=== PATIENT | female | born 1995 | race Caucasian/White ===

== ENCOUNTER 2018-09-09 10:34 | Emergency (ER) | payer SELFPAY ==
[~2018-09-09] VITALS: Wt 112.9 kg
[2018-09-09] MEDS ORDERED: SOD CHLORIDE 0.9% 1,000 ML IV STA ×2 (10:52→13:56)
[2018-09-09] MEDS ORDERED: LORAZEPAM 2 MG INJ IV ONE (11:00)
[2018-09-09] MEDS ORDERED: METO-407 PO (11:50)
[2018-09-09] MEDS ORDERED: MIRT7.5T8 PO (11:51)
[2018-09-09] MEDS ORDERED: CITA20TA11 PO (11:52)
[2018-09-09] MEDS ORDERED: LURA80TA PO (11:52)
[2018-09-09] MEDS ORDERED: ONDA4TAB13 PO (11:53)
[2018-09-09] MEDS ORDERED: LINA145C PO (11:54)
[2018-09-09] MEDS ORDERED: LEVA0.634 INHALATION (11:56)
[2018-09-09] MEDS ORDERED: FLUD0.1T10 PO ×2 (12:51)
[2018-09-09] MEDS ORDERED: ZIPRASIDONE 20 MG CAP PO ONE (13:00)
[2018-09-09] MEDS ORDERED: DILTIAZEM 25 MG INJ IV ONE (13:00)
[2018-09-09] MEDS ORDERED: LORAZEPAM 2 MG INJ IV STA (13:56)
[2018-09-09] MEDS ORDERED: METOPROLOL 5 MG INJ IV ONE (14:00)
--- NOTE | 2018-09-09 14:09 | ERD ---
ER Documentation Chief Complaint Chief Complaint palpitaTIONS HX OF SVT [id number] IN TRIAGE HPI This is a 23-year-old female visiting from [place] with a history of severe PTSD on multiple benzodiazepines. The patient indicates that she was seen just prior at [facility] for tachycardia. The patient states she was subsequently released after she was told that she had anxiety. They administered Ativan I did a chest radiograph which she stated was normal. The patient however indicates that she still feeling very warm and experiencing palpitations. She has no chest pain or pressure. She has no shortness of breath. She has no suicidal homicidal thoughts or ideations. ROS All systems reviewed and are negative except as per history of present illness. Medications Home Meds Reported Medications Fludrocortisone* (Fludrocortisone*) 0.1 Mg Tablet, 0.2 MG PO QAM, TAB 09/09/18 Fludrocortisone* (Fludrocortisone*) 0.1 Mg Tablet, 0.1 MG PO QHS, TAB 09/09/18 Levalbuterol Hcl* (Levalbuterol Hcl*) 0.63 Mg/3 Ml Vial.neb, 0.63 MG INHALATION Q6H PRN for WHEEZING AND SOB, VIAL 09/09/18 Linaclotide (LINZESS) 145 Mcg Capsule, 145 MCG PO DAILY, #30 CAP 09/09/18 Ondansetron Hcl* (Zofran*) 4 Mg Tab, 4 MG PO NEEDED PRN for NAUSEA AND OR VOMITING, TAB 09/09/18 Citalopram Hydrobromide* (Celexa*) 20 Mg Tablet, 20 MG PO DAILY, #30 TAB 09/09/18 Lurasidone Hcl (LATUDA) 80 Mg Tablet, 80 MG PO DAILY, #30 TAB 09/09/18 Mirtazapine* (Mirtazapine*) 7.5 Mg Tablet, 7.5 MG PO HS PRN for NEEDED, TAB 09/09/18 Metoprolol Tartrate* (Lopressor*) 100 Mg Tablet, 100 MG PO BID, #60 TAB 09/09/18 Allergies Allergies: Coded Allergies: chlorpromazine (Verified Allergy, Mild, unk, 09/09/18) haloperidol (Verified Allergy, Mild, unk, 09/09/18) latex (Verified Allergy, Mild, sensitivity, 09/09/18) olanzapine (Verified Allergy, Mild, hives/sob, 09/09/18) Uncoded Allergies: SEAFOOD (Allergy, Mild, unk, 09/09/18) PMhx/Soc Hx Respiratory Disorders: Yes (ASTHMA) Hx Cardiac Disorders: Yes (SVT, LOW JADYN=P) Hx Psychiatric Problems: Yes (DEPRESSION, PTSD, BULIMIA) Hx Miscellaneous Medical Probl: Yes (RHABDO) Hx Alcohol Use: No Hx Substance Use: No Hx Tobacco Use: No Smoking Status: Never smoker Physical Exam Vitals Vital Signs Date Temp Pulse Resp B/P (MAP) Pulse Ox O2 O2 Flow FiO2 Time Delivery Rate 09/09/18 98.7 99 13 120/82 100 Room Air 18:08 (95) 09/09/18 98.7 95 21 126/100 97 Room Air 17:00 (109) 09/09/18 99.2 110 20 139/104 100 Room Air 15:00 (116) 09/09/18 99.2 107 24 139/89 100 Room Air 14:30 (106) 09/09/18 99.2 101 28 142/106 100 Room Air 13:30 (118) 09/09/18 99.2 83 31 148/100 99 Room Air 11:38 (116) 09/09/18 99.2 130 20 193/141 99 10:35 (158) Physical Exam Constitutional:Well-developed. Well-nourished. HEENT:Normocephalic. Atraumatic.Pupils were equal round reactive to light. Moist mucous membranes.No tonsillar exudates. Neck: No nuchal rigidity. No lymphadenopathy. No posterior cervical spine tenderness or step-offs. Respiratory: Not using accessory muscles of respiration.Lungs were clear to auscultation bilaterally. No rhonchi. No rales. No wheezing. Cardiovascular: Tachycardic with regular rhythm.No murmurs. No rubs were appreciated.S1, S2 normal. Distal pulses are palpable 2+ bilaterally. GI: Abdomen was soft. Nontender. Non Distended. No pulsatile abdominal masses or bruits. No rebound. No guarding. Bowel sounds were present and normal. Muscle skeletal: Full range of motion of both the upper and lower extremities bilaterally.Normal muscle tone.No assymetrical calf tenderness or swelling. Skin: No petechia, no purpura. No lesions on the palms or the soles of the feet. No maculopapular rash. NEURO: Patient was alert, awake, orientated x3.No facial droop. Gait observed and normal with no ataxia.Speech had regular rate and rhythm. No focal neurological deficits. PSYCH: Patient appears very anxious. Patient very rapidly. Denied any suicidal homicidal thoughts or ideations. Patient was hyperventilating. Result Diagram: 09/09/18 1057 09/09/18 1057 Results 24 hrs Laboratory Tests Test 09/09/18 10:57 09/09/18 14:41 09/09/18 14:50 White Blood Count 13.4 10^3/ul Red Blood Count 4.10 10^6/ul Hemoglobin 11.4 g/dl Hematocrit 36.1 % Mean Corpuscular Volume 88.0 fl Mean Corpuscular Hemoglobin 27.8 pg Mean Corpuscular 31.6 g/dl Hemoglobin Concent Red Cell Distribution Width 14.0 % Platelet Count 385 10^3/UL Mean Platelet Volume 11.5 fl Immature Granulocytes % 0.500 % Neutrophils % 81.2 % Lymphocytes % 12.2 % Monocytes % 5.2 % Eosinophils % 0.4 % Basophils % 0.5 % Nucleated Red Blood Cells % 0.0 /100WBC Immature Granulocytes # 0.070 10^3/ul Neutrophils # 10.8 10^3/ul Lymphocytes # 1.6 10^3/ul Monocytes # 0.7 10^3/ul Eosinophils # 0.1 10^3/ul Basophils # 0.1 10^3/ul Nucleated Red Blood Cells # 0.0 10^3/ul Prothrombin Time 12.8 Sec Prothrombin Time Ratio 1.0 INR International 0.95 Normalized Ratio Activated Partial Thromboplast 24.7 Sec Time Sodium Level 144 mmol/L Potassium Level 3.7 mmol/L Chloride Level 108 mmol/L Carbon Dioxide Level 22 mmol/L Anion Gap 14 Blood Urea Nitrogen 13 mg/dl Creatinine 0.66 mg/dl Est Glomerular Filtrat > 60 mL/min Rate mL/min Glucose Level 114 mg/dl Calcium Level 9.1 mg/dl Total Bilirubin 0.4 mg/dl Direct Bilirubin 0.00 mg/dl Indirect Bilirubin 0.4 mg/dl Aspartate Amino 28 IU/L Transf (AST/SGOT) Alanine 22 IU/L Aminotransferase (ALT/SGPT) Alkaline Phosphatase 83 IU/L Creatine Kinase 171 IU/L 192 IU/L Creatine Kinase Index 0.9 1.5 Creatinine Kinase MB (Mass) 1.62 ng/ml 2.92 ng/ml Troponin I < 0.012 ng/ml < 0.012 ng/ml Total Protein 7.3 g/dl Albumin 4.6 g/dl Globulin 2.70 g/dl Albumin/Globulin Ratio 1.70 Serum HCG, Qualitative NEGATIVE Free Thyroxine Index 2.33 ug/ml Thyroxine (T4) 7.8 ug/dl Triiodothyronine (T3) Uptake 29.9 % Salicylates Level Pending Acetaminophen Level Pending Ethyl Alcohol Level Pending Urine Color YELLOW Urine Clarity SLIGHTLY CLOUDY Urine pH 7.0 Urine Specific [place] 1.015 Urine Ketones NEGATIVE mg/dL Urine Nitrite NEGATIVE mg/dL Urine Bilirubin NEGATIVE mg/dL Urine Urobilinogen NEGATIVE mg/dL Urine Leukocyte Esterase TRACE Melva/ul Urine Microscopic RBC 2 /HPF Urine Microscopic WBC 5 /HPF Urine Squamous Epithelial Cells FEW /HPF Urine Bacteria FEW /HPF Urine Mucus FEW /HPF Urine Hemoglobin NEGATIVE mg/dL Urine Glucose NEGATIVE mg/dL Urine Total Protein NEGATIVE mg/dl Urine Opiates Screen Negative Urine Barbiturates Negative Urine Amphetamines Screen Positive Urine Benzodiazepines Screen Negative Urine Cocaine Screen Negative Urine Cannabinoids Negative Current Medications Medications Dose Sig/Bharti Start Time Status Last (Trade) Ordered Route PRN Stop Time Admin Dose Reason Admin Sodium 1,000 ml @ Q1H STAT 09/09/18 DC 09/09/18 Chloride 1,000 mls/hr IV 10:52 11:28 09/09/18 11:51 Lorazepam 1 mg ONCE ONCE 09/09/18 DC 09/09/18 (Ativan) IV 11:00 11:28 09/09/18 11:01 Diltiazem 10 mg ONCE ONCE 09/09/18 DC 09/09/18 HCl IV 13:00 13:06 (Cardizem Iv) 09/09/18 13:01 Ziprasidone 20 mg ONCE ONCE 09/09/18 DC 09/09/18 (Geodon) PO 13:00 13:06 09/09/18 13:01 Metoprolol 5 mg ONCE ONCE 09/09/18 DC 09/09/18 Tartrate IV 14:00 14:34 (Lopressor) 09/09/18 14:01 Sodium 1,000 ml @ Q1H STAT 09/09/18 DC 09/09/18 Chloride 1,000 mls/hr IV 13:56 14:28 09/09/18 14:55 Lorazepam 1 mg ONCE STAT 09/09/18 DC 09/09/18 (Ativan) IV 13:56 14:28 09/09/18 13:58 Procedures/MDM This is a 23-year-old female that presented to the emergency department with palpitations and known history of SVT. The patient appeared very anxious and verbal de-escalation was unable to calm the patient down. IV access was established and the patient was placed on a case monitor. The patient received 1 mg of IV Ativan. 12 Lead EKG tracing ordered and reviewed by myself showed: Sinus tachycardia 104 bpm and no arrhythmia. ID interval normal. QRS duration normal. No ST segment elevation No ST segment depression. No changes consistent with acute ischemia. Observation Note: Time: 4 hours Family Hx: No Hypertension Evaluation: Multiple exams showed continuation of her anxiety. The patient would fluctuate between heartbeat of 82 heart rate of 160. However the patient never had a narrow complex tachycardia and this was always sinus in rhythm. The patient's symptoms are more result of severe anxiety. The patient has multiple allergies to Zyprexa Haldol clorazepate. The patient had received Ativan with no improvement of her symptoms. I also gave the patient both Cardizem and metoprolol she states this is helped her in the past. The patient had no evidence of thyrotoxicosis. I did not feel that her symptoms were result of a cardiac arrhythmia but rather result of severe anxiety and exacerbation of her PTSD. Therefore at this time I did feel the patient would benefit from a telemetry psych evaluation as she stated she did not feel comfortable going home. Sign Out Note: Dr. Saavedra relayed current data and ongoing care with me. Time: Time of this note Primary Provider: Keri Diagnosis: Palpitations chest pain Pending: Dr. Saavedra signed patient out to me, pending psychiat marcie consult. On reevaluation, the patient stated that she was to go home, she did not want to be evaluated by psychiatrist, she endorsed to me that she has been evaluated by psychiatrist multiple times, and she denies suicidal ideations, denies hospitalizations, she is lucid, and can endorse a plan of care for home. She states that she would like to be discharged home, at this point she has not required psychiatric consult. I encouraged her to return for any worsening symptoms, at discharge she was in no distress. Departure Diagnosis: Primary Impression: Sinus tachycardia Additional Impression: PTSD (post-traumatic stress disorder) Condition: Fair Patient Instructions: Palpitations JOYCE TRUJILLO MD Sep 09, 2018 14:09 BRITANY JOHNSON MD Sep 09, 2018 18:09
[2018-09-09 18:08] VITALS: BP 120/82; PULSE 99; RESP 13
== END 2018-09-09 18:10 | disposition home or self-care (01) ==
LOC: E/R 10:34
DX: F43.10 Post-traumatic stress disorder, unspecified (principal); R00.0 Tachycardia, unspecified; J45.909 Unspecified asthma, uncomplicated; Z91.040 Latex allergy status
CPT/HCPCS: 80053; 80307; 81001; 82550; 82553; 84436; 84479; 84484; 84703; 85025; 85610; 85730; 93005; 96361; 96374; 96375; 96376; 99284; J2060; J7030